=== PATIENT | male | born 1980 | race Caucasian/White ===

== ENCOUNTER 2021-11-15 17:07 | Inpatient (IN) | payer MEDICAID ==
[~2021-11-15] VITALS: Ht 167.6 cm; Wt 68.0 kg
[2021-11-15] MEDS ORDERED: normal saline 1000ML IV soln IVB ONE ×3 (17:50→21:45)
[2021-11-15 18:34] LABS: ALANINE AMINOTRANSFERASE 29 U/L (12-78); ALBUMIN 4.7 G/DL (3.4-5.0); ALBUMIN/GLOBULIN RATIO 1.3 (1.1-1.5); ALKALINE PHOSPHATASE 65 IU/L (46-116); ANION GAP 10 (8-16); ASPARTATE AMINO TRANSFERASE 18 U/L (10-37); BILIRUBIN,TOTAL 0.7 MG/DL (0.1-1.0); BLOOD UREA NITROGEN 18 MG/DL (7-18); BUN/CREATININE RATIO 17.3 (5.4-32.0); CALCIUM 9.7 MG/DL (8.5-10.1); CHLORIDE 108 MMOL/L (99-107); CREATININE 1.04 MG/DL (0.60-1.10); GLUCOSE 114 MG/DL (70-104); SODIUM 144 MMOL/L (135-145); TOTAL CARBON DIOXIDE 26.4 MMOL/L (24-32); TOTAL PROTEIN 8.2 G/DL (6.4-8.2); eGFR 78 ML/MIN
--- NOTE | 2021-11-15 19:00 | NUR ---
pt to CT
--- NOTE | 2021-11-15 19:22 | NUR ---
PATIENT AMBULATED FROM ER BD 18 TO ER BD 12, SOME DIZZINESS, NO ASSISTANCE NEEDED.
[2021-11-15 19:35] LABS: BASOPHILS % (AUTO) 0.2 % (0-1); EOSINOPHILS # (AUTO) 0.1 X10'3 (0-0.9); EOSINOPHILS % (AUTO) 0.3 % (0-6); HEMATOCRIT 51.5 % (42.0-52.0); HEMOGLOBIN 16.9 g/dl (14.0-17.9); LYMPHOCYTES # (AUTO) 1.3 X10'3 (1.1-4.8); LYMPHOCYTES % (AUTO) 7.4 % (21-51); MEAN CORPUSCULAR HEMOGLOBIN 30.2 PG (27.0-31.0); MEAN CORPUSCULAR HGB CONC 32.9 g/dL (33.0-36.5); MEAN CORPUSCULAR VOLUME 91.7 FL (78-98); MEAN PLATELET VOLUME 9.7 FL (7.4-10.4); MONOCYTES # (AUTO) 0.9 X10'3 (0-0.9); MONOCYTES % (AUTO) 4.9 % (2-12); NEUTROPHILS # (AUTO) 15.5 X10'3 (1.8-7.7); NEUTROPHILS % (AUTO) 87.2 % (42-75); PLATELET COUNT 281 X10'3 (140-440); RED BLOOD COUNT 5.62 X10'6 (4.70-6.10); RED CELL DISTRIBUTION WIDTH 13.9 % (11.5-14.5); WHITE BLOOD COUNT 17.8 X10'3 (4.5-11.0)
[2021-11-15 19:40] LABS: APTT 25 SECONDS (22-32)
[2021-11-15 20:24] LABS: CLARITY,URINE CLEAR (Clear); COLOR,URINE YELLOW (Yellow); GLUCOSE, URINE NEGATIVE (Neg); KETONES,URINE 15 mg/dl (Neg); LEUKOCYTE ESTERASE ,URINE NEGATIVE (Neg); NITRITES, URINE NEGATIVE (Neg); OCCULT BLOOD,URINE NEGATIVE (Neg); PROTEIN,URINE NEGATIVE (Neg); UROBILINOGEN,URINE 0.2 E.U/dL (0.2-1.0)
[2021-11-15 20:40] LABS: UA COLLECTION TYPE CLN CATCH MIDSTREAM
[2021-11-15] MEDS ORDERED: aspirin 325mg tablet PO ONE (20:50)
[2021-11-15] MEDS ORDERED: temazepam 15mg capsule PO PRN (21:00)
[2021-11-15 21:36] LABS: D-DIMER 0.25 MG/L FEU (0-0.50)
[2021-11-15] MEDS ORDERED: CefTRIAXone 2gm/NS 100ml IVPB 100 ML IV ONE (21:40)
[2021-11-15 21:42] LABS: CREATINE KINASE 132 U/L (39-308); LIPASE 93 U/L (73-393)
[2021-11-15 22:07] LABS: URINE AMPHETAMINE SCREEN NEGATIVE (Neg); URINE BARBITUATE SCREEN NEGATIVE (Neg); URINE BENZODIAZEPINES SCREEN NEGATIVE (Neg); URINE CANNABINOID SCREEN NEGATIVE (Neg); URINE COCAINE SCREEN NEGATIVE (Neg); URINE METHADONE SCREEN NEGATIVE (Neg); URINE OPIATE SCREEN NEGATIVE (Neg); URINE PHENCYCLIDINE SCREEN NEGATIVE (Neg)
[2021-11-15] MEDS ORDERED: acetaminophen 325mg tablet PO PRN ×2 (22:10)
[2021-11-15] MEDS ORDERED: ondansetron/PF 4mg/2ml inj IV PRN (22:10)
[2021-11-15] MEDS ORDERED: diphenhydrAMINE 50 mg/ml inj IV PRN (22:10)
[2021-11-15] MEDS ORDERED: bisacodyl 10mg suppository rectal RC PRN (22:10)
[2021-11-15] MEDS ORDERED: ondansetron 4mg rapidly disintigrating tab PO PRN (22:10)
[2021-11-15] MEDS ORDERED: morphine 2 MG/ML inj. syringe IV PRN ×2 (22:10)
[2021-11-15] MEDS ORDERED: magnesium hydroxide 30ml (MOM) UD suspension PO PRN (22:10)
[2021-11-15] MEDS ORDERED: mag hydrox/Alum hydrox/simeth 30ml oral suspension PO PRN (22:10)
[2021-11-15] MEDS ORDERED: HYDROcodone/acetaminophen 5mg/325mg tablet PO PRN (22:10)
[2021-11-15] MEDS ORDERED: diphenhydrAMINE 25mg capsule PO PRN (22:10)
[2021-11-15] MEDS ORDERED: heparin 10,000 units/1 ML INJ IV PRN (22:15)
[2021-11-15] MEDS ORDERED: heparin 10,000 units/1 ML INJ IV ONE (22:15)
[2021-11-15 22:40] LABS: PHOSPHORUS 2.6 MG/DL (2.3-4.5)
[2021-11-15 22:43] LABS: BASOPHILS % (AUTO) 0.3 % (0-1); EOSINOPHILS % (AUTO) 0.1 % (0-6); HEMATOCRIT 47.1 % (42.0-52.0); HEMOGLOBIN 16.1 g/dl (14.0-17.9); LYMPHOCYTES # (AUTO) 1.5 X10'3 (1.1-4.8); MEAN CORPUSCULAR HEMOGLOBIN 30.4 PG (27.0-31.0); MEAN CORPUSCULAR HGB CONC 34.1 g/dL (33.0-36.5); MEAN CORPUSCULAR VOLUME 89.3 FL (78-98); MEAN PLATELET VOLUME 9.3 FL (7.4-10.4); MONOCYTES # (AUTO) 0.5 X10'3 (0-0.9); MONOCYTES % (AUTO) 3.7 % (2-12); NEUTROPHILS # (AUTO) 10.5 X10'3 (1.8-7.7); NEUTROPHILS % (AUTO) 83.9 % (42-75); PLATELET COUNT 241 X10'3 (140-440); RED BLOOD COUNT 5.28 X10'6 (4.70-6.10); RED CELL DISTRIBUTION WIDTH 13.3 % (11.5-14.5); WHITE BLOOD COUNT 12.6 X10'3 (4.5-11.0)
[2021-11-15] MEDS: heparin 25,000 UNIT/250ml bag 250 ML IV SCH (22:57)
[2021-11-15] MEDS: normal saline 1000ml 1,000 ML IV SCH (23:04)
[2021-11-16 02:28] LABS: BASOPHILS # (AUTO) 0.1 X10'3 (0-0.2); BASOPHILS % (AUTO) 0.5 % (0-1); EOSINOPHILS # (AUTO) 0.1 X10'3 (0-0.9); EOSINOPHILS % (AUTO) 0.6 % (0-6); HEMATOCRIT 48.5 % (42.0-52.0); HEMOGLOBIN 16.4 g/dl (14.0-17.9); LYMPHOCYTES # (AUTO) 2.7 X10'3 (1.1-4.8); LYMPHOCYTES % (AUTO) 25.3 % (21-51); MEAN CORPUSCULAR HEMOGLOBIN 30.9 PG (27.0-31.0); MEAN CORPUSCULAR HGB CONC 33.8 g/dL (33.0-36.5); MEAN CORPUSCULAR VOLUME 91.2 FL (78-98); MEAN PLATELET VOLUME 9.6 FL (7.4-10.4); MONOCYTES # (AUTO) 0.6 X10'3 (0-0.9); NEUTROPHILS # (AUTO) 7.3 X10'3 (1.8-7.7); NEUTROPHILS % (AUTO) 67.6 % (42-75); PLATELET COUNT 243 X10'3 (140-440); RED BLOOD COUNT 5.31 X10'6 (4.70-6.10); RED CELL DISTRIBUTION WIDTH 13.2 % (11.5-14.5); WHITE BLOOD COUNT 10.8 X10'3 (4.5-11.0)
[2021-11-16 02:43] LABS: ALANINE AMINOTRANSFERASE 25 U/L (12-78); ALBUMIN 3.9 G/DL (3.4-5.0); ALBUMIN/GLOBULIN RATIO 1.1 (1.1-1.5); ALKALINE PHOSPHATASE 61 IU/L (46-116); ANION GAP 9 (8-16); ASPARTATE AMINO TRANSFERASE 17 U/L (10-37); BILIRUBIN,TOTAL 0.6 MG/DL (0.1-1.0); BLOOD UREA NITROGEN 11 MG/DL (7-18); BUN/CREATININE RATIO 13.4 (5.4-32.0); CALCIUM 8.4 MG/DL (8.5-10.1); CHLORIDE 108 MMOL/L (99-107); CHOL/HDL RATIO 3.4 (0.00-4.99); CHOLESTEROL 233 MG/DL (0-200); CREATININE 0.82 MG/DL (0.60-1.10); GLUCOSE 91 MG/DL (70-104); HDL CHOLESTEROL 68 MG/DL (35-60); LDL CHOLESTEROL 151 MG/DL (50-100); POTASSIUM 3.8 MMOL/L (3.5-5.1); SODIUM 142 MMOL/L (135-145); TOTAL CARBON DIOXIDE 25.4 MMOL/L (24-32); TOTAL PROTEIN 7.4 G/DL (6.4-8.2); TRIGLYCERIDES 37 MG/DL (20-135); eGFR > 90 ML/MIN
[2021-11-16] MEDS ORDERED: NO HOME MEDS (03:36)
[2021-11-16] MEDS ORDERED: pantoprazole 40mg Tablet.DR PO SCH (07:30)
[2021-11-16] MEDS ORDERED: docusate sod 100mg capsule PO SCH (08:00)
[2021-11-16] MEDS ORDERED: metoprolol tartrate 25mg tablet PO SCH (08:00)
[2021-11-16] MEDS: normal saline 1000ml 1,000 ML IV SCH (09:16)
[2021-11-16] MEDS: heparin 25,000 UNIT/250ml bag 250 ML IV SCH (09:20)
[2021-11-16 11:50] VITALS: BP 117/81
--- NOTE | 2021-11-16 12:50 | NUR ---
dr donaldson came to nurses station verbal order for d/c the heparin drip .ordered cta head and neck.
--- NOTE | 2021-11-16 14:09 | NUR ---
Teri flores in [facility] - 11/16/21 at 1410 by [email or web address] to mri.
[2021-11-16] MEDS ORDERED: LOP25T PO (16:47)
[2021-11-16] MEDS ORDERED: ASPI-1264 PO (16:47)
--- NOTE | 2021-11-16 17:36 | NUR ---
pt dc'd home with family, verbalized understanding dc instructions, no questions, has prescriptions to fruit picker at [facility] on [address],
--- NOTE | 2021-11-16 17:39 | NUR ---
pt dc'd home from ER, no beds avaiable upstairs, pt amb with steady gait to ER lobby with family,
[2021-11-16] MEDS ORDERED: cefTRIAXone 1g/NS 100ml IVPB 100 ML IV SCH (21:00)
== END 2021-11-16 17:52 | disposition home or self-care (01) | DRG 422 ==
LOC: ER 17:09 → ED HOLD 22:14
PROVIDERS: ADMIT Family Medicine; ATTEND Family Medicine
DX: E86.0 Dehydration (principal); D72.829 Elevated white blood cell count, unspecified; R82.4 Acetonuria; I48.91 Unspecified atrial fibrillation; X30.XXXA Exposure to excessive natural heat, initial encounter; Y93.89 Activity, other specified; Y92.89 Other specified places as the place of occurrence of the external cause; Y99.8 Other external cause status
CPT/HCPCS: 36415; 70450; 70544; 70547; 70551; 71045; 71250; 74176; 80053; 80061; 80305; 81003; 82550; 83036; 83605; 83690; 83735; 83880; 84100; 84145; 84443; 84484; 85025; 85379; 85610; 85730; 87040; 92508; 92616; 93306; 99291; G0378; J0696; J1644; J7030